=== PATIENT | male | born 1985 | race Caucasian/White ===

== ENCOUNTER 2018-05-15 05:21 | Emergency (ER) | payer OTHER ==
[~2018-05-15] VITALS: Ht 180.3 cm; Wt 103.9 kg
[2018-05-15 05:32] VITALS: Ht 180.3 cm; Wt 103.9 kg
[2018-05-15 05:54] VITALS: BP 135/83
== END 2018-05-15 05:54 | disposition home or self-care (01) ==
LOC: ED 05:21
DX: S16.1XXA Strain of muscle, fascia and tendon at neck level, initial encounter (principal); K21.9 Gastro-esophageal reflux disease without esophagitis; X58.XXXA Exposure to other specified factors, initial encounter; Y93.89 Activity, other specified; Y92.091 Bathroom in other non-institutional residence as the place of occurrence of the external cause; Y99.8 Other external cause status